=== PATIENT | female | born 1990 | race African-American/Black ===

== ENCOUNTER 2019-01-23 14:30 | Emergency (ER) | payer MEDICAID ==
[~2019-01-23] VITALS: Ht 172.7 cm; Wt 79.0 kg
[2019-01-23] MEDS ORDERED: IBUPROFEN 600MG TABLET PO ONE (18:00)
[2019-01-23] MEDS ORDERED: ACETAMINOPHEN 325MG TABLET PO ONE (18:30)
[2019-01-23] MEDS ORDERED: OXYCODONE HCL/ACETAMINOPHEN 5/325MG TABLET PO ONE (19:00)
[2019-01-23 19:07] VITALS: BP 122/89
== END 2019-01-23 19:37 | disposition home or self-care (01) ==
LOC: ER 14:30
DX: M25.462 Effusion, left knee (principal); F12.10 Cannabis abuse, uncomplicated; Z98.890 Other specified postprocedural states; Z91.041 Radiographic dye allergy status
CPT/HCPCS: 73560; 73562; 99283